=== PATIENT | male | born 1970 | race Caucasian/White ===

== ENCOUNTER 2019-03-01 04:08 | Inpatient (IN) | payer MEDICAID, OTHER ==
[~2019-03-01] VITALS: Ht 177.8 cm; Wt 104.5 kg
[2019-03-01] MEDS ORDERED: SODIUM CHLORIDE 0.9% 1,000 ML IV ONE (04:38)
[2019-03-01 05:10] LABS: BASOPHILS % 0.7 % (0.0-2.0); HEMATOCRIT. 30.5 % (42.0-52.0); HEMOGLOBIN. 9.6 g/dL (14.0-18.0); LYMPHOCYTES % 17.6 % (20.0-50.0); MEAN CORPUSCULAR HEMOGLOBIN 23.3 pg (28.0-32.0); MEAN CORPUSCULAR VOLUME 73.6 fL (80.0-94.0); MONOCYTES % 13.7 % (2.0-8.0); PLATELET 343 x1000/uL (130-400); RED BLOOD CELL COUNT 4.14 mill/uL (4.7-6.1); RED CELL DISTRIBUTION WIDTH 19.8 % (11.6-14.6)
[2019-03-01 05:14] LABS: INR 1.1; PROTHROMBIN TIME 11.2 sec (9.6-11.0)
[2019-03-01 05:16] LABS: CHLORIDE 105 mEq/L (98-107)
[2019-03-01 05:20] LABS: ETHANOL BLOOD < 10 mg/dL
[2019-03-01] MEDS ORDERED: CEFTRIAXONE 1 G PREMIX 50 ML IV ONE (06:00)
[2019-03-01 06:20] LABS: CLARITY URINE CLEAR (CLEAR); COLOR URINE YELLOW (YELLOW); KETONES URINE 1+ (NEGATIVE); LEUKOCYTE ESTERASE URINE NEGATIVE (NEGATIVE); NITRITE URINE NEGATIVE (NEGATIVE); OCCULT BLOOD URINE NEGATIVE (NEGATIVE); PROTEIN URINE NEGATIVE (NEGATIVE); SPECIFIC GRAVITY URINE 1.012 (1.005-1.030)
[2019-03-01 06:44] LABS: *AMPHETAMINES SCREEN URINE NEGATIVE (NEGATIVE); *BARBITURATES SCREEN URINE NEGATIVE (NEGATIVE); *BENZODIAZEPINES SCREEN URINE NEGATIVE (NEGATIVE); *COCAINE SCREEN URINE NEGATIVE (NEGATIVE); CANNABINOID URINE SCREEN PRESUMTIVE POSITIVE (NEGATIVE); METHADONE URINE SCREEN NEGATIVE (NEGATIVE); OPIATES URINE SCREEN NEGATIVE (NEGATIVE); PHENCYCLIDINE URINE SCREEN NEGATIVE (NEGATIVE)
[2019-03-01] MEDS ORDERED: ONDANSETRON HCL 4MG/2ML INJ IV PRN (08:30)
[2019-03-01] MEDS ORDERED: MAGNESIUM/ALUMINUM HYDROXIDE/SIMETHICONE 30ML UDC PO PRN (08:30)
[2019-03-01] MEDS ORDERED: DIPHENHYDRAMINE 50MG/ML VIAL IV PRN (08:30)
[2019-03-01] MEDS ORDERED: CLONIDINE 0.1MG TABLET PO PRN (08:30)
[2019-03-01] MEDS ORDERED: ENOXAPARIN 40MG/0.4ML SYR SUBCUT SCH (08:30)
[2019-03-01] MEDS ORDERED: ACETAMINOPHEN 325MG TABLET PO PRN (08:30)
[2019-03-01] MEDS ORDERED: ACETAMINOPHEN 650MG/20.3ML UDC GT PRN (08:30)
[2019-03-01] MEDS ORDERED: DOCUSATE SODIUM 100MG CAPSULE PO PRN (08:30)
[2019-03-01] MEDS ORDERED: ACETAMINOPHEN 650MG SUPP PR PRN (08:30)
[2019-03-01] MEDS ORDERED: NA PHOS,M-B/NA PHOS,DI-BA ENEMA 118ML PR PRN (08:30)
[2019-03-01] MEDS ORDERED: HYDROCODONE/ACETAMINOPHEN 5/325MG TABLET PO PRN (08:30)
[2019-03-01 09:30] VITALS: BP 166/76
[2019-03-01] MEDS: MORPHINE SULFATE 4 MG/ML CPJ (NOT FOR IM USE) IV PRN (09:35)
[2019-03-01 11:00] VITALS: BP 159/75
[2019-03-01] MEDS: SODIUM CHLORIDE 0.9% 1,000 ML IV SCH (11:43)
[2019-03-01] MEDS: ENOXAPARIN 30MG/0.3ML SYR SUBCUT SCH ×2 (11:44→22:34)
[2019-03-01 12:00] VITALS: BP 128/88
[2019-03-01] MEDS ORDERED: OMEP20CA5 PO (12:59)
[2019-03-01] MEDS ORDERED: METF-414 PO (13:00)
[2019-03-01] MEDS ORDERED: AMLO10TA80 MT (13:01)
[2019-03-01] MEDS ORDERED: CYAN10009 PO (13:06)
[2019-03-01] MEDS ORDERED: FOLI-43 MT (13:06)
[2019-03-01] MEDS ORDERED: CABO40TA PO (13:07)
[2019-03-01] MEDS: SODIUM CHLORIDE 0.9% INJ 3ML FLUSH IVF SCH ×2 (13:28→22:34)
[2019-03-01] MEDS: LEVOFLOXACIN 500MG PREMIX 100 ML IV SCH (13:28)
[2019-03-01 16:00] VITALS: BP 111/79
[2019-03-01 20:00] VITALS: BP 129/91
[2019-03-01] MEDS: GUAIFENESIN 200MG/10ML SUGAR FREE UDC PO PRN (22:37)
[2019-03-02] VITALS: BP 117/72
[2019-03-02] MEDS: SODIUM CHLORIDE 0.9% 1,000 ML IV SCH ×2 (02:11→11:54)
[2019-03-02 04:00] VITALS: BP 123/78
[2019-03-02] MEDS: SODIUM CHLORIDE 0.9% INJ 3ML FLUSH IVF SCH ×3 (06:19→22:12)
[2019-03-02] MEDS ORDERED: DEXTROSE 50% WATER 50ML SYRINGE IV PRN (07:00)
[2019-03-02] MEDS: BLOOD SUGAR DIAGNOSTIC STRIP TEST SCH ×4 (07:03→20:39)
[2019-03-02] MEDS: INSULIN LISPRO 100 UNITS/ML SUBCUT SCH ×4 (07:04→20:39)
[2019-03-02 07:11] LABS: BASOPHILS % 0.4 % (0.0-2.0); HEMATOCRIT. 30.7 % (42.0-52.0); HEMOGLOBIN. 9.7 g/dL (14.0-18.0); LYMPHOCYTES % 14.7 % (20.0-50.0); MEAN CORPUSCULAR HEMOGLOBIN 23.2 pg (28.0-32.0); MEAN CORPUSCULAR VOLUME 73.8 fL (80.0-94.0); MEAN PLATELET VOLUME 8.1 fl (7.4-10.4); MONOCYTES % 13.9 % (2.0-8.0); PLATELET 364 x1000/uL (130-400); RED BLOOD CELL COUNT 4.17 mill/uL (4.7-6.1); RED CELL DISTRIBUTION WIDTH 19.1 % (11.6-14.6)
[2019-03-02 07:20] LABS: CHLORIDE 105 mEq/L (98-107)
[2019-03-02 07:30] LABS: HDL CHOLESTEROL 20 mg/dL (40-59); LDL CHOLESTEROL 68 mg/dL (5-100)
[2019-03-02 08:00] VITALS: BP 129/86
[2019-03-02] MEDS: GUAIFENESIN 200MG/10ML SUGAR FREE UDC PO PRN ×3 (08:48→20:25)
[2019-03-02] MEDS: LEVOFLOXACIN 500MG PREMIX 100 ML IV SCH (11:54)
[2019-03-02] MEDS: ENOXAPARIN 30MG/0.3ML SYR SUBCUT SCH ×2 (11:54→22:12)
[2019-03-02 12:00] VITALS: BP 122/80
[2019-03-02 16:00] VITALS: BP 144/88
[2019-03-02 20:00] VITALS: BP 119/69
[2019-03-02] MEDS: IPRATROPIUM/ALBUTEROL 0.5-3(2.5)MG/3ML NEB INH PRN (20:50)
[2019-03-03] VITALS (7 sets, daily range): BP systolic 118–132; BP diastolic 74–92
[2019-03-03] MEDS: SODIUM CHLORIDE 0.9% 1,000 ML IV SCH ×2 (00:17→14:37)
[2019-03-03] MEDS: IPRATROPIUM/ALBUTEROL 0.5-3(2.5)MG/3ML NEB INH PRN ×2 (00:41→05:53)
[2019-03-03] MEDS: GUAIFENESIN 200MG/10ML SUGAR FREE UDC PO PRN (02:42)
[2019-03-03] MEDS: MORPHINE SULFATE 4 MG/ML CPJ (NOT FOR IM USE) IV PRN (03:34)
[2019-03-03] MEDS: BLOOD SUGAR DIAGNOSTIC STRIP TEST SCH ×4 (05:59→21:00)
[2019-03-03] MEDS: SODIUM CHLORIDE 0.9% INJ 3ML FLUSH IVF SCH ×3 (05:59→22:10)
[2019-03-03] MEDS: INSULIN LISPRO 100 UNITS/ML SUBCUT SCH ×4 (06:18→21:00)
[2019-03-03] MEDS ORDERED: CEPH-569 MT (07:28)
[2019-03-03] MEDS ORDERED: IBUPROFEN 400MG TABLET PO SCH (08:00)
[2019-03-03] MEDS: ENOXAPARIN 30MG/0.3ML SYR SUBCUT SCH ×2 (12:52→23:36)
[2019-03-03] MEDS ORDERED: LEVOFLOXACIN 500MG PREMIX 100 ML IV SCH (14:00)
[2019-03-04] VITALS: BP 125/85
== END 2019-03-04 01:20 | disposition home or self-care (01) | DRG 720 ==
LOC: ER 04:23 → EDBEDREQSVC 05:43 → EDBEDREQTM 05:43 → EDBEDREQ 05:43 → ENRESERV 07:49 → 5WST 10:23
PROVIDERS: ADMIT Family Medicine; ATTEND Family Medicine
DX: A41.9 Sepsis, unspecified organism (principal); E11.22 Type 2 diabetes mellitus with diabetic chronic kidney disease; N18.4 Chronic kidney disease, stage 4 (severe); E44.1 Mild protein-calorie malnutrition; N12 Tubulo-interstitial nephritis, not specified as acute or chronic; I12.9 Hypertensive chronic kidney disease with stage 1 through stage 4 chronic kidney disease, or unspecified chronic kidney disease; G89.29 Other chronic pain; E66.9 Obesity, unspecified; E86.0 Dehydration; Z88.8 Allergy status to other drugs, medicaments and biological substances; Z85.528 Personal history of other malignant neoplasm of kidney; Z90.49 Acquired absence of other specified parts of digestive tract; Z91.041 Radiographic dye allergy status; Z68.33 Body mass index [BMI] 33.0-33.9, adult
CPT/HCPCS: 36415; 71045; 73030; 73080; 74176; 80061; 80305; 80320; 82962; 83605; 83880; 84145; 84443; 84484; 93005; 93306; 93970; 94640; 96361; 96365; 96375; 99291; J0696; J1650; J1956; J2270; J2405; J7030; J7620; G0480

== ENCOUNTER 2019-03-10 10:33 | Emergency (ER) | payer MEDICAID ==
[~2019-03-10] VITALS: Ht 175.3 cm; Wt 80.0 kg
[~2019-03-10 10:33] MED LIST: AMLO10TA80 MT; CABO40TA PO; CEPH-569 MT; CYAN10009 PO; FOLI-43 MT; METF-414 PO; OMEP20CA10 PO
[2019-03-10 11:28] LABS: CHLORIDE 103 mEq/L (98-107)
[2019-03-10 11:32] LABS: BASOPHILS % 0.4 % (0.0-2.0); EOSINOPHILS % 0.4 % (0.0-5.0); HEMATOCRIT. 29.4 % (42.0-52.0); HEMOGLOBIN. 9.1 g/dL (14.0-18.0); LYMPHOCYTES % 10.4 % (20.0-50.0); MEAN CORPUSCULAR HEMOGLOBIN 22.7 pg (28.0-32.0); MEAN CORPUSCULAR VOLUME 73.4 fL (80.0-94.0); MEAN PLATELET VOLUME 8.1 fl (7.4-10.4); MONOCYTES % 11.5 % (2.0-8.0); NEUTROPHILS % 77.3 % (40.0-76.0); PLATELET 366 x1000/uL (130-400); RED CELL DISTRIBUTION WIDTH 18.6 % (11.6-14.6)
[2019-03-10 11:36] LABS: INR 1.1; PROTHROMBIN TIME 11.2 sec (9.6-11.0)
[2019-03-10] MEDS ORDERED: MINERAL OIL ENEMA 133ML PR ONE (12:00)
[2019-03-10] MEDS ORDERED: SODIUM CHLORIDE 0.9% 1,000 ML IV ONE (12:00)
[2019-03-10 13:22] LABS: CLARITY URINE CLEAR (CLEAR); COLOR URINE YELLOW (YELLOW); KETONES URINE NEGATIVE (NEGATIVE); LEUKOCYTE ESTERASE URINE NEGATIVE (NEGATIVE); NITRITE URINE NEGATIVE (NEGATIVE); OCCULT BLOOD URINE NEGATIVE (NEGATIVE); PH URINE 6.5 (4.5-8.0); PROTEIN URINE TRACE (NEGATIVE); SPECIFIC GRAVITY URINE 1.012 (1.005-1.030); UROBILINOGEN URINE 0.2 E.U./dL (0.2-1.0)
[2019-03-10] MEDS ORDERED: FENTANYL CITRATE/PF 50MCG/ML 2ML VIAL IV SCH (15:15)
[2019-03-10 15:28] VITALS: BP 134/93
== END 2019-03-10 16:02 | disposition home or self-care (01) ==
LOC: ER 10:33
DX: R53.1 Weakness (principal); D50.9 Iron deficiency anemia, unspecified; K59.00 Constipation, unspecified; C64.2 Malignant neoplasm of left kidney, except renal pelvis; E88.09 Other disorders of plasma-protein metabolism, not elsewhere classified; R03.0 Elevated blood-pressure reading, without diagnosis of hypertension; Z88.8 Allergy status to other drugs, medicaments and biological substances; Z91.041 Radiographic dye allergy status
CPT/HCPCS: 36415; 74018; 74176; 80053; 81003; 82962; 83690; 85025; 85610; 93005; 96374; 99284; J3010; Z7610

== ENCOUNTER 2019-03-23 01:13 | Emergency (ER) | payer MEDICAID ==
[~2019-03-23] VITALS: Ht 175.3 cm; Wt 91.0 kg
[2019-03-23] MEDS ORDERED: SODIUM CHLORIDE 0.9% 1,000 ML IV ONE (02:02)
[2019-03-23 02:39] LABS: BASOPHILS % 0.9 % (0.0-2.0); EOSINOPHILS % 0.9 % (0.0-5.0); HEMATOCRIT. 26.4 % (42.0-52.0); HEMOGLOBIN. 8.3 g/dL (14.0-18.0); LYMPHOCYTES % 12.6 % (20.0-50.0); MEAN CORPUSCULAR HEMOGLOBIN 22.8 pg (28.0-32.0); NEUTROPHILS % 76.6 % (40.0-76.0); PLATELET 549 x1000/uL (130-400); RED BLOOD CELL COUNT 3.62 mill/uL (4.7-6.1); RED CELL DISTRIBUTION WIDTH 18.9 % (11.6-14.6)
[2019-03-23 02:43] LABS: CHLORIDE 101 mEq/L (98-107)
[2019-03-23 02:47] LABS: ETHANOL BLOOD < 10 mg/dL
[2019-03-23 03:30] VITALS: BP 128/75
== END 2019-03-23 07:06 | disposition home or self-care (01) ==
LOC: ER 01:13
DX: J06.9 Acute upper respiratory infection, unspecified (principal); F12.10 Cannabis abuse, uncomplicated; D64.9 Anemia, unspecified; E11.9 Type 2 diabetes mellitus without complications; Z79.899 Other long term (current) drug therapy; Z91.041 Radiographic dye allergy status; Z88.8 Allergy status to other drugs, medicaments and biological substances
CPT/HCPCS: 36415; 71045; 80053; 80320; 82962; 84484; 85025; 93005; 99284; J7030; G0480

== ENCOUNTER 2019-04-19 15:46 | Inpatient (IN) | payer MEDICAID ==
[~2019-04-19] VITALS: Ht 177.8 cm; Wt 109.9 kg
[~2019-04-19 15:46] MED LIST changes: -OMEP20CA10 PO; +OMEP20CA5 PO
[2019-04-19] MEDS ORDERED: ASPIRIN 81MG TABLET PO ONE (16:45)
[2019-04-19 16:55] LABS: BASOPHILS % 1.2 % (0.0-2.0); EOSINOPHILS % 1.4 % (0.0-5.0); HEMATOCRIT. 25.9 % (42.0-52.0); LYMPHOCYTES % 21.4 % (20.0-50.0); MEAN CORPUSCULAR HEMOGLOBIN 22.6 pg (28.0-32.0); MEAN CORPUSCULAR VOLUME 72.8 fL (80.0-94.0); MEAN PLATELET VOLUME 7.8 fl (7.4-10.4); MONOCYTES % 13.2 % (2.0-8.0); NEUTROPHILS % 62.8 % (40.0-76.0); PLATELET 414 x1000/uL (130-400); RED BLOOD CELL COUNT 3.55 mill/uL (4.7-6.1); RED CELL DISTRIBUTION WIDTH 19.4 % (11.6-14.6)
[2019-04-19 16:59] LABS: CHLORIDE 103 mEq/L (98-107)
[2019-04-19 18:21] LABS: CLARITY URINE CLEAR (CLEAR); COLOR URINE YELLOW (YELLOW); KETONES URINE NEGATIVE (NEGATIVE); LEUKOCYTE ESTERASE URINE 1+ (NEGATIVE); NITRITE URINE NEGATIVE (NEGATIVE); OCCULT BLOOD URINE NEGATIVE (NEGATIVE); PH URINE 7.5 (4.5-8.0); PROTEIN URINE 1+ (NEGATIVE); SPECIFIC GRAVITY URINE 1.016 (1.005-1.030)
[2019-04-19] MEDS ORDERED: ZOLP10TA2 PO (21:29)
[2019-04-19] MEDS ORDERED: ALBU90AE INH (21:32)
[2019-04-19 21:34] VITALS: BP 134/82
[2019-04-19] MEDS ORDERED: ACETAMINOPHEN 650MG/20.3ML UDC GT PRN (22:00)
[2019-04-19] MEDS ORDERED: IPRATROPIUM/ALBUTEROL 0.5-3(2.5)MG/3ML NEB INH PRN (22:00)
[2019-04-19] MEDS ORDERED: DIPHENHYDRAMINE 50MG/ML VIAL IV PRN (22:00)
[2019-04-19] MEDS ORDERED: MAGNESIUM/ALUMINUM HYDROXIDE/SIMETHICONE 30ML UDC PO PRN (22:00)
[2019-04-19] MEDS ORDERED: ACETAMINOPHEN 650MG SUPP PR PRN (22:00)
[2019-04-19] MEDS ORDERED: NA PHOS,M-B/NA PHOS,DI-BA ENEMA 118ML PR PRN (22:00)
[2019-04-19] MEDS ORDERED: CLONIDINE 0.1MG TABLET PO PRN (22:00)
[2019-04-19] MEDS ORDERED: DOCUSATE SODIUM 100MG CAPSULE PO PRN (22:00)
[2019-04-19] MEDS ORDERED: ONDANSETRON HCL 4MG/2ML INJ IV PRN (22:00)
[2019-04-19 23:49] LABS: CLARITY URINE CLEAR (CLEAR); COLOR URINE YELLOW (YELLOW); KETONES URINE NEGATIVE (NEGATIVE); LEUKOCYTE ESTERASE URINE NEGATIVE (NEGATIVE); NITRITE URINE NEGATIVE (NEGATIVE); OCCULT BLOOD URINE NEGATIVE (NEGATIVE); PROTEIN URINE TRACE (NEGATIVE); SPECIFIC GRAVITY URINE 1.015 (1.005-1.030)
[2019-04-20] VITALS: BP 115/79
[2019-04-20 00:07] LABS: CREATINE KINASE 26 IU/L (39-308)
[2019-04-20 00:10] LABS: CREATINE KINASE MB FRACTION < 1.0 ng/mL (0.5-3.6)
[2019-04-20 00:58] LABS: *AMPHETAMINES SCREEN URINE NEGATIVE (NEGATIVE); *BARBITURATES SCREEN URINE NEGATIVE (NEGATIVE); *BENZODIAZEPINES SCREEN URINE NEGATIVE (NEGATIVE); *COCAINE SCREEN URINE NEGATIVE (NEGATIVE); CANNABINOID URINE SCREEN PRESUMTIVE POSITIVE (NEGATIVE)
[2019-04-20 00:59] LABS: METHADONE URINE SCREEN NEGATIVE (NEGATIVE); OPIATES URINE SCREEN NEGATIVE (NEGATIVE); PHENCYCLIDINE URINE SCREEN NEGATIVE (NEGATIVE)
[2019-04-20] MEDS: IPRATROPIUM/ALBUTEROL 0.5-3(2.5)MG/3ML NEB INH SCH ×4 (00:59→21:25)
[2019-04-20] MEDS: ACETAMINOPHEN 325MG TABLET PO PRN ×2 (02:54→22:14)
[2019-04-20 04:00] VITALS: BP 113/84
[2019-04-20] MEDS: GUAIFENESIN 200MG/10ML SUGAR FREE UDC PO PRN ×3 (05:24→16:34)
[2019-04-20 06:40] LABS: EOSINOPHILS % 2.8 % (0.0-5.0); HEMATOCRIT. 23.5 % (42.0-52.0); HEMOGLOBIN. 7.3 g/dL (14.0-18.0); LYMPHOCYTES % 21.2 % (20.0-50.0); MEAN CORPUSCULAR HEMOGLOBIN 22.6 pg (28.0-32.0); MEAN CORPUSCULAR VOLUME 72.5 fL (80.0-94.0); MEAN PLATELET VOLUME 8.1 fl (7.4-10.4); MONOCYTES % 14.1 % (2.0-8.0); NEUTROPHILS % 60.9 % (40.0-76.0); PLATELET 415 x1000/uL (130-400); RED BLOOD CELL COUNT 3.24 mill/uL (4.7-6.1)
[2019-04-20 06:51] LABS: CHLORIDE 104 mEq/L (98-107)
[2019-04-20] MEDS: SODIUM CHLORIDE 0.9% INJ 3ML FLUSH IVF SCH ×3 (07:03→21:26)
[2019-04-20 07:14] LABS: CREATINE KINASE 26 IU/L (39-308); LDL CHOLESTEROL 54 mg/dL (5-100)
[2019-04-20 07:16] LABS: HDL CHOLESTEROL 19 mg/dL (40-59)
[2019-04-20 07:19] LABS: CREATINE KINASE MB FRACTION < 1.0 ng/mL (0.5-3.6)
[2019-04-20] MEDS ORDERED: ENOXAPARIN 30MG/0.3ML SYR SUBCUT SCH (09:00)
[2019-04-20] MEDS ORDERED: FUROSEMIDE 40MG/4ML VIAL IVP SCH (09:15)
[2019-04-20 11:32] VITALS: BP 122/86
[2019-04-20 16:00] VITALS: BP 127/84
[2019-04-20 20:00] VITALS: BP 126/81
[2019-04-20] MEDS: FUROSEMIDE 40MG/4ML VIAL IVP SCH (21:46)
[2019-04-21] VITALS (11 sets, daily range): BP systolic 114–131; BP diastolic 79–96
[2019-04-21] MEDS: IPRATROPIUM/ALBUTEROL 0.5-3(2.5)MG/3ML NEB INH SCH (02:26)
[2019-04-21] MEDS: GUAIFENESIN 200MG/10ML SUGAR FREE UDC PO PRN (03:57)
[2019-04-21] MEDS: SODIUM CHLORIDE 0.9% INJ 3ML FLUSH IVF SCH ×3 (06:03→22:00)
[2019-04-21] MEDS: ACETAMINOPHEN 325MG TABLET PO PRN ×2 (08:10→22:02)
[2019-04-21] MEDS: FUROSEMIDE 40MG/4ML VIAL IVP SCH ×2 (08:10→18:06)
[2019-04-21 13:17] LABS: HEMATOCRIT 27.7 % (42.0-52.0); HEMOGLOBIN 8.5 g/dL (14.0-18.0)
[2019-04-21] MEDS ORDERED: AMLO5TAB88 PO (19:20)
[2019-04-21] MEDS: IPRATROPIUM BROMIDE (0.02%) 0.5MG/2.5ML NEB HHN SCH (21:23)
[2019-04-22] VITALS: BP 125/86
[2019-04-22] MEDS: IPRATROPIUM BROMIDE (0.02%) 0.5MG/2.5ML NEB HHN SCH ×4 (00:02→12:50)
[2019-04-22] MEDS: GUAIFENESIN 200MG/10ML SUGAR FREE UDC PO PRN (02:32)
[2019-04-22 04:00] VITALS: BP 121/80
[2019-04-22] MEDS: SODIUM CHLORIDE 0.9% INJ 3ML FLUSH IVF SCH (05:10)
[2019-04-22] MEDS: FUROSEMIDE 40MG/4ML VIAL IVP SCH (09:51)
[2019-04-22 10:03] LABS: CHLORIDE 100 mEq/L (98-107)
[2019-04-22 10:09] LABS: EOSINOPHILS % 2.4 % (0.0-5.0); HEMATOCRIT. 26.9 % (42.0-52.0); HEMOGLOBIN. 8.5 g/dL (14.0-18.0); LYMPHOCYTES % 14.5 % (20.0-50.0); MEAN CORPUSCULAR HEMOGLOBIN 23.2 pg (28.0-32.0); MEAN CORPUSCULAR VOLUME 73.9 fL (80.0-94.0); MEAN PLATELET VOLUME 8.3 fl (7.4-10.4); MONOCYTES % 12.6 % (2.0-8.0); NEUTROPHILS % 69.5 % (40.0-76.0); PLATELET 398 x1000/uL (130-400); RED BLOOD CELL COUNT 3.64 mill/uL (4.7-6.1); RED CELL DISTRIBUTION WIDTH 20.3 % (11.6-14.6)
[2019-04-22] MEDS ORDERED: FURO-151 MT (13:01)
[2019-04-22 14:47] VITALS: BP 124/75
== END 2019-04-22 15:41 | disposition home or self-care (01) | DRG 194 ==
LOC: ER 15:46 → EDBEDREQ 16:41 → 6WST 19:18 → EDBEDREQSVC 19:26 → EDBEDREQTM 19:26 → EDBEDREQ 19:26 → ENRESERV 20:04
PROVIDERS: ADMIT Family Medicine; ATTEND Family Medicine
DX: I11.0 Hypertensive heart disease with heart failure (principal); J96.00 Acute respiratory failure, unspecified whether with hypoxia or hypercapnia; E43 Unspecified severe protein-calorie malnutrition; C78.00 Secondary malignant neoplasm of unspecified lung; C79.31 Secondary malignant neoplasm of brain; C64.9 Malignant neoplasm of unspecified kidney, except renal pelvis; D64.9 Anemia, unspecified; E87.70 Fluid overload, unspecified; I50.33 Acute on chronic diastolic (congestive) heart failure; I31.3 Pericardial effusion (noninflammatory); E11.9 Type 2 diabetes mellitus without complications; F12.90 Cannabis use, unspecified, uncomplicated; R00.0 Tachycardia, unspecified; Z91.041 Radiographic dye allergy status; Z88.8 Allergy status to other drugs, medicaments and biological substances; Z79.899 Other long term (current) drug therapy; Z79.84 Long term (current) use of oral hypoglycemic drugs
CPT/HCPCS: 36415; 71045; 71250; 80061; 80305; 82550; 82553; 83880; 84484; 85014; 85018; 86850; 86900; 86920; 93005; 93306; 93970; 94640; 96374; 97162; 99285; J1200; J1650; J1940; J7050; J7620; P9021

== ENCOUNTER 2019-04-25 00:09 | Inpatient (IN) | payer MEDICAID ==
[~2019-04-25] VITALS: Ht 177.8 cm; Wt 107.5 kg
[~2019-04-25 00:09] MED LIST changes: +ALBU90AE INH; -AMLO10TA80 MT; -CEPH-569 MT; +FURO-151 MT; -METF-414 PO; +ZOLP10TA2 PO
[2019-04-25] MEDS ORDERED: ONDANSETRON HCL 4MG/2ML INJ IV STA (01:00)
[2019-04-25] MEDS ORDERED: MORPHINE SULFATE 4 MG/ML CPJ (NOT FOR IM USE) IV STA (01:00)
[2019-04-25 01:40] LABS: BASOPHILS % 0.8 % (0.0-2.0); EOSINOPHILS % 2.2 % (0.0-5.0); HEMATOCRIT. 25.3 % (42.0-52.0); HEMOGLOBIN. 7.9 g/dL (14.0-18.0); LYMPHOCYTES % 19.6 % (20.0-50.0); MEAN CORPUSCULAR HEMOGLOBIN 23.2 pg (28.0-32.0); MEAN CORPUSCULAR VOLUME 74.1 fL (80.0-94.0); MEAN PLATELET VOLUME 8.1 fl (7.4-10.4); MONOCYTES % 14.7 % (2.0-8.0); NEUTROPHILS % 62.7 % (40.0-76.0); PLATELET 441 x1000/uL (130-400); RED BLOOD CELL COUNT 3.42 mill/uL (4.7-6.1)
[2019-04-25 01:43] LABS: CHLORIDE 100 mEq/L (98-107)
[2019-04-25 08:00] VITALS: BP 115/71
[2019-04-25] MEDS ORDERED: ACETAMINOPHEN 325MG TABLET PO PRN (08:15)
[2019-04-25] MEDS ORDERED: LORAZEPAM 0.5MG TABLET PO PRN (08:15)
[2019-04-25] MEDS ORDERED: MAGNESIUM/ALUMINUM HYDROXIDE/SIMETHICONE 30ML UDC PO PRN (08:15)
[2019-04-25] MEDS ORDERED: CLONIDINE 0.1MG TABLET PO PRN (08:15)
[2019-04-25] MEDS ORDERED: ONDANSETRON HCL 4MG/2ML INJ IV PRN (08:15)
[2019-04-25] MEDS ORDERED: MORPHINE SULFATE 2 MG/ML CPJ (NOT FOR IM USE) IV PRN (08:15)
[2019-04-25] MEDS ORDERED: DOCUSATE SODIUM 100MG CAPSULE PO PRN (08:15)
[2019-04-25] MEDS ORDERED: TRAMADOL 50MG TABLET PO PRN (08:15)
[2019-04-25] MEDS ORDERED: ZOLPIDEM TARTRATE 5MG TABLET PO PRN (08:15)
[2019-04-25] MEDS ORDERED: IPRATROPIUM/ALBUTEROL 0.5-3(2.5)MG/3ML NEB INH PRN (08:15)
[2019-04-25 09:00] VITALS: BP 115/71
[2019-04-25] MEDS: METOPROLOL TARTRATE 25MG TABLET PO SCH ×2 (09:00→21:12)
[2019-04-25 09:55] LABS: HEMATOCRIT. 26.2 % (42.0-52.0); HEMOGLOBIN. 7.9 g/dL (14.0-18.0); MEAN CORPUSCULAR HEMOGLOBIN 22.7 pg (28.0-32.0); MEAN CORPUSCULAR VOLUME 74.9 fL (80.0-94.0); MEAN PLATELET VOLUME 8.1 fl (7.4-10.4); PLATELET 386 x1000/uL (130-400); RED CELL DISTRIBUTION WIDTH 21.8 % (11.6-14.6)
[2019-04-25 10:02] LABS: CHLORIDE 101 mEq/L (98-107)
[2019-04-25 10:08] LABS: TOTAL IRON BINDING CAPACITY 120 ug/dL (250-450)
[2019-04-25 10:23] LABS: PLATELET ESTIMATE NORMAL
[2019-04-25 10:26] LABS: FOLIC ACID (FOLATE) SERUM 15.5 ng/mL (>5.38)
[2019-04-25 12:00] VITALS: BP 111/77
[2019-04-25] MEDS: FAMOTIDINE 20MG TABLET PO SCH ×2 (12:13→21:10)
[2019-04-25] MEDS: CEFTRIAXONE 1 G PREMIX 50 ML IV SCH (12:14)
[2019-04-25 15:15] LABS: BASOPHILS % 0.8 % (0.0-2.0); EOSINOPHILS % 2.3 % (0.0-5.0); HEMOGLOBIN. 7.6 g/dL (14.0-18.0); LYMPHOCYTES % 14.8 % (20.0-50.0); MEAN CORPUSCULAR HEMOGLOBIN 22.9 pg (28.0-32.0); MEAN CORPUSCULAR VOLUME 75.3 fL (80.0-94.0); MEAN PLATELET VOLUME 8.5 fl (7.4-10.4); MONOCYTES % 14.4 % (2.0-8.0); NEUTROPHILS % 67.7 % (40.0-76.0); PLATELET 382 x1000/uL (130-400); RED BLOOD CELL COUNT 3.32 mill/uL (4.7-6.1); RED CELL DISTRIBUTION WIDTH 21.6 % (11.6-14.6)
[2019-04-25 16:00] VITALS: BP 104/60
[2019-04-25] MEDS ORDERED: DEXTROSE 50% WATER 50ML SYRINGE IV PRN (16:00)
[2019-04-25] MEDS: BLOOD SUGAR DIAGNOSTIC STRIP TEST SCH ×2 (16:55→21:00)
[2019-04-25] MEDS: INSULIN LISPRO 100 UNITS/ML SUBCUT SCH ×2 (16:58→21:00)
[2019-04-25] MEDS ORDERED: METOLAZONE 10MG TABLET PO NR (17:00)
[2019-04-25] MEDS ORDERED: LEVOFLOXACIN 750MG PREMIX 150 ML IV SCH (18:00)
[2019-04-25] MEDS ORDERED: AMLO5TAB88 MT (19:37)
[2019-04-25] MEDS ORDERED: EVER10TA MT (19:37)
[2019-04-25 20:00] VITALS: BP 114/82
[2019-04-25] MEDS: GUAIFENESIN 200MG/10ML SUGAR FREE UDC PO PRN (21:10)
[2019-04-26] VITALS: BP 107/75
[2019-04-26] MEDS: GUAIFENESIN 200MG/10ML SUGAR FREE UDC PO PRN (02:24)
[2019-04-26 04:00] VITALS: BP 116/78
[2019-04-26] MEDS: BLOOD SUGAR DIAGNOSTIC STRIP TEST SCH ×2 (06:53→11:45)
[2019-04-26] MEDS: INSULIN LISPRO 100 UNITS/ML SUBCUT SCH ×2 (06:53→12:15)
[2019-04-26 07:31] LABS: CHLORIDE 99 mEq/L (98-107)
[2019-04-26 08:00] VITALS: BP 112/75
[2019-04-26] MEDS: METOPROLOL TARTRATE 25MG TABLET PO SCH (09:00)
[2019-04-26] MEDS: CEFTRIAXONE 1 G PREMIX 50 ML IV SCH (10:09)
[2019-04-26] MEDS: FAMOTIDINE 20MG TABLET PO SCH (10:10)
[2019-04-26 12:56] LABS: BASOPHILS % 0.4 % (0.0-2.0); EOSINOPHILS % 2.1 % (0.0-5.0); HEMATOCRIT. 24.4 % (42.0-52.0); HEMOGLOBIN. 7.5 g/dL (14.0-18.0); LYMPHOCYTES % 14.7 % (20.0-50.0); MEAN CORPUSCULAR HEMOGLOBIN 23.2 pg (28.0-32.0); MEAN CORPUSCULAR VOLUME 75.7 fL (80.0-94.0); MEAN PLATELET VOLUME 8.6 fl (7.4-10.4); MONOCYTES % 14.3 % (2.0-8.0); NEUTROPHILS % 68.5 % (40.0-76.0); PLATELET 395 x1000/uL (130-400); RED BLOOD CELL COUNT 3.23 mill/uL (4.7-6.1); RED CELL DISTRIBUTION WIDTH 21.6 % (11.6-14.6)
[2019-04-26 15:55] VITALS: BP 102/72
[2019-04-27] MEDS ORDERED: LEVOFLOXACIN 250MG TABLET PO SCH (21:00)
== END 2019-04-26 16:25 | disposition home or self-care (01) | DRG 136 ==
LOC: ER 00:09 → EDBEDREQ 03:55 → EDBEDREQTM 03:55 → 5WST 04:41 → ENRESERV 07:44
PROVIDERS: ADMIT Internal Medicine; ATTEND Internal Medicine
DX: C78.00 Secondary malignant neoplasm of unspecified lung (principal); J96.00 Acute respiratory failure, unspecified whether with hypoxia or hypercapnia; E43 Unspecified severe protein-calorie malnutrition; J18.9 Pneumonia, unspecified organism; R18.8 Other ascites; E83.51 Hypocalcemia; C64.9 Malignant neoplasm of unspecified kidney, except renal pelvis; E83.52 Hypercalcemia; D63.8 Anemia in other chronic diseases classified elsewhere; E11.9 Type 2 diabetes mellitus without complications; I10 Essential (primary) hypertension; N61.0 Mastitis without abscess; Z68.34 Body mass index [BMI] 34.0-34.9, adult; Z88.8 Allergy status to other drugs, medicaments and biological substances; Z91.09 Other allergy status, other than to drugs and biological substances
CPT/HCPCS: 36415; 71045; 80048; 82607; 82746; 82962; 83036; 83540; 83550; 83605; 83880; 84484; 86850; 86900; 93005; 93970; 94640; 96374; 96375; 99285; J0696; J1956; J2270; J2405; J7050; J7620

== ENCOUNTER 2019-05-16 13:45 | Inpatient (IN) | payer MEDICAID ==
[~2019-05-16] VITALS: Ht 177.8 cm; Wt 115.7 kg
[2019-05-16] VITALS (18 sets, daily range): BP systolic 100–117; BP diastolic 57–77
[~2019-05-16 13:45] MED LIST changes: +AMLO5TAB88 MT; +EVER10TA MT
[2019-05-16] MEDS ORDERED: DILTIAZEM HCL 5MG/ML 5ML VIAL IV ONE (14:30)
[2019-05-16] MEDS ORDERED: LIDOCAINE HCL 1% 20ML VIAL (Pyxis) INJ ONE (14:42)
[2019-05-16] MEDS ORDERED: SODIUM BICARBONATE 4% (2.4MEQ) 5ML VIAL IV ONE (14:42)
[2019-05-16] MEDS ORDERED: DILTIAZEM HCL 125 MG in DEXT 5% WATER 100 ML IV ONE (14:45)
[2019-05-16] MEDS ORDERED: DIGOXIN 500MCG/2ML AMP IV ONE ×2 (14:45→16:00)
[2019-05-16 14:46] LABS: BASOPHILS % 1.6 % (0.0-2.0); EOSINOPHILS % 0.7 % (0.0-5.0); HEMATOCRIT. 25.5 % (42.0-52.0); HEMOGLOBIN. 7.8 g/dL (14.0-18.0); LYMPHOCYTES % 17.9 % (20.0-50.0); MEAN CORPUSCULAR HEMOGLOBIN 22.7 pg (28.0-32.0); MEAN CORPUSCULAR VOLUME 74.6 fL (80.0-94.0); MEAN PLATELET VOLUME 9.9 fl (7.4-10.4); MONOCYTES % 11.9 % (2.0-8.0); NEUTROPHILS % 67.9 % (40.0-76.0); PLATELET 182 x1000/uL (130-400); RED BLOOD CELL COUNT 3.42 mill/uL (4.7-6.1); RED CELL DISTRIBUTION WIDTH 21.1 % (11.6-14.6)
[2019-05-16 14:53] LABS: CHLORIDE 98 mEq/L (98-107)
[2019-05-16 14:55] LABS: PARTIAL THROMBOPLASTIN TIME 31.3 sec (23.4-31.0); PROTHROMBIN TIME 10.3 sec (9.6-11.0)
[2019-05-16 14:57] LABS: ETHANOL BLOOD < 10 mg/dL
[2019-05-16] MEDS ORDERED: DILTIAZEM HCL 125 MG in DEXT 5% WATER 100 ML IV SCH (15:00)
[2019-05-16 15:02] LABS: T4 FREE 1.19 ng/dL (0.76-1.46)
[2019-05-16] MEDS ORDERED: LEVOFLOXACIN 500MG PREMIX 100 ML IV ONE (15:15)
[2019-05-16] MEDS ORDERED: CEFTRIAXONE 1 G PREMIX 50 ML IV SCH (15:30)
[2019-05-16] MEDS ORDERED: AZITHROMYCIN 500 MG in DEXT 5% WATER 250 ML IV SCH (15:30)
[2019-05-16] MEDS ORDERED: IPRATROPIUM/ALBUTEROL 0.5-3(2.5)MG/3ML NEB HHN PRN (15:30)
[2019-05-16 16:28] LABS: BG BASE EXCESS 0.7 mmol/L (-2.0-2.0); BG CARBOXYHEMOGLOBIN 0.4 % (0.5-1.5); BG DEOXYHEMOGLOBIN 0.4 % (0.0-5.0); BG FRACTION INSPIRED OXYGEN 100; BG HCO3 ACT 24.8 mmol/L (22.0-26.0); BG METHEMOGLOBIN 0.3 % (0.0-1.5); BG OXYGEN SATURATION 99.6 % (92.0-98.5); BG OXYHEMOGLOBIN 98.9 % (94.0-97.0); BG PCO2 37.3 mmHg (35.0-45.0); BG PO2 266.2 mmHg (75.0-100.0); BG SAMPLE SITE RIGHT RADIAL; BG TOTAL HEMOGLOBIN 8.1 g/dL (12.0-18.0); BG VENT MODE MASK - NRB
[2019-05-16] MEDS ORDERED: ZOLPIDEM TARTRATE 5MG TABLET PO PRN (16:30)
[2019-05-16] MEDS ORDERED: NITROGLYCERIN 0.4MG TABLET SL SL PRN (16:30)
[2019-05-16] MEDS ORDERED: GUAIFENESIN 200MG/10ML SUGAR FREE UDC PO PRN (16:30)
[2019-05-16] MEDS ORDERED: IPRATROPIUM/ALBUTEROL 0.5-3(2.5)MG/3ML NEB INH PRN (16:30)
[2019-05-16] MEDS ORDERED: CLONIDINE 0.1MG TABLET PO PRN (16:30)
[2019-05-16] MEDS ORDERED: MAGNESIUM/ALUMINUM HYDROXIDE/SIMETHICONE 30ML UDC PO PRN (16:30)
[2019-05-16 17:44] LABS: TOTAL IRON BINDING CAPACITY 168 ug/dL (250-450)
[2019-05-16 18:15] LABS: VITAMIN B12 SERUM 1926 pg/mL (211-911)
[2019-05-16 18:17] LABS: FOLIC ACID (FOLATE) SERUM > 20.00 ng/mL (>5.38)
[2019-05-16] MEDS ORDERED: FUROSEMIDE 40MG/4ML VIAL IVP NR (20:00)
[2019-05-16] MEDS: FAMOTIDINE 20MG TABLET PO SCH (20:26)
[2019-05-16] MEDS: GUAIFENESIN/DM 600MG/30MG ER TAB 12HR PO SCH (20:26)
[2019-05-16] MEDS: ASCORBIC ACID 500 MG TABLET PO SCH (20:26)
[2019-05-16] MEDS ORDERED: VANCOMYCIN 2,000 MG in DEXT 5% WATER 500 ML IV NR (21:00)
[2019-05-16] MEDS: PIPERACILLIN/TAZ 3.375G PREMIX 50 ML IV SCH (21:11)
[2019-05-16] MEDS: MORPHINE SULFATE 2 MG/ML CPJ (NOT FOR IM USE) IV PRN (22:21)
[2019-05-17] VITALS (93 sets, daily range): BP systolic 91–124; BP diastolic 21–81
[2019-05-17] MEDS: IPRATROPIUM BROMIDE (0.02%) 0.5MG/2.5ML NEB HHN SCH ×7 (00:29→20:08)
[2019-05-17] MEDS: LORAZEPAM 0.5MG TABLET PO PRN ×2 (00:45→22:40)
[2019-05-17] MEDS ORDERED: DILTIAZEM HCL 125 MG in DEXT 5% WATER 100 ML IV PRN (01:15)
[2019-05-17] MEDS: PIPERACILLIN/TAZ 3.375G PREMIX 50 ML IV SCH ×4 (03:20→23:27)
[2019-05-17] MEDS: MORPHINE SULFATE 2 MG/ML CPJ (NOT FOR IM USE) IV PRN ×3 (05:21→21:14)
[2019-05-17 05:37] LABS: BASOPHILS % 1.5 % (0.0-2.0); EOSINOPHILS % 1.5 % (0.0-5.0); HEMATOCRIT. 22.5 % (42.0-52.0); LYMPHOCYTES % 16.9 % (20.0-50.0); MEAN CORPUSCULAR VOLUME 75.1 fL (80.0-94.0); MEAN PLATELET VOLUME 10.2 fl (7.4-10.4); MONOCYTES % 9.8 % (2.0-8.0); NEUTROPHILS % 70.3 % (40.0-76.0); PLATELET 135 x1000/uL (130-400); RED BLOOD CELL COUNT 2.99 mill/uL (4.7-6.1); RED CELL DISTRIBUTION WIDTH 21.3 % (11.6-14.6)
[2019-05-17 05:48] LABS: CHLORIDE 98 mEq/L (98-107)
[2019-05-17 06:02] LABS: CREATINE KINASE 21 IU/L (39-308)
[2019-05-17 06:06] LABS: CREATINE KINASE MB FRACTION < 1.0 ng/mL (0.5-3.6)
[2019-05-17 06:12] LABS: HEMOGLOBIN. 6.9 g/dL (14.0-18.0)
[2019-05-17] MEDS: ASCORBIC ACID 500 MG TABLET PO SCH ×2 (09:50→21:10)
[2019-05-17] MEDS: FAMOTIDINE 20MG TABLET PO SCH ×2 (09:50→21:10)
[2019-05-17] MEDS: VANCOMYCIN 1250MG in DEXTROSE 5% WATER 250ML IV SCH ×2 (09:51→21:10)
[2019-05-17] MEDS: ZINC SULFATE 220 MG ( 50 ) CAPSULE PO SCH (09:51)
[2019-05-17] MEDS: TRAMADOL 50MG TABLET PO PRN (09:53)
[2019-05-17] MEDS: GUAIFENESIN/DM 600MG/30MG ER TAB 12HR PO SCH ×2 (11:00→21:10)
[2019-05-17] MEDS: AMIODARONE HCL 200 MG TABLET PO SCH (18:08)
[2019-05-17 20:15] LABS: BASOPHILS % 2.3 % (0.0-2.0); EOSINOPHILS % 1.2 % (0.0-5.0); HEMATOCRIT. 24.5 % (42.0-52.0); HEMOGLOBIN. 7.5 g/dL (14.0-18.0); LYMPHOCYTES % 15.5 % (20.0-50.0); MEAN CORPUSCULAR HEMOGLOBIN 23.4 pg (28.0-32.0); MEAN CORPUSCULAR VOLUME 76.9 fL (80.0-94.0); MEAN PLATELET VOLUME 9.9 fl (7.4-10.4); MONOCYTES % 12.2 % (2.0-8.0); NEUTROPHILS % 68.8 % (40.0-76.0); PLATELET 134 x1000/uL (130-400); RED BLOOD CELL COUNT 3.19 mill/uL (4.7-6.1); RED CELL DISTRIBUTION WIDTH 21.8 % (11.6-14.6)
[2019-05-17 20:30] LABS: PROTHROMBIN TIME 10.3 sec (9.6-11.0)
[2019-05-17] MEDS: DILTIAZEM HCL 30MG TABLET PO SCH (21:11)
[2019-05-18] VITALS (77 sets, daily range): BP systolic 85–126; BP diastolic 31–76
[2019-05-18] MEDS: IPRATROPIUM BROMIDE (0.02%) 0.5MG/2.5ML NEB HHN SCH ×6 (00:36→20:53)
[2019-05-18] MEDS: PIPERACILLIN/TAZ 3.375G PREMIX 50 ML IV SCH ×4 (05:30→23:06)
[2019-05-18] MEDS: DILTIAZEM HCL 30MG TABLET PO SCH ×3 (05:30→21:16)
[2019-05-18 07:53] LABS: BASOPHILS % 1.8 % (0.0-2.0); EOSINOPHILS % 1.2 % (0.0-5.0); HEMATOCRIT. 23.7 % (42.0-52.0); HEMOGLOBIN. 7.4 g/dL (14.0-18.0); LYMPHOCYTES % 16.2 % (20.0-50.0); MEAN CORPUSCULAR HEMOGLOBIN 23.9 pg (28.0-32.0); MEAN CORPUSCULAR VOLUME 76.6 fL (80.0-94.0); MEAN PLATELET VOLUME 10.3 fl (7.4-10.4); NEUTROPHILS % 69.8 % (40.0-76.0); PLATELET 129 x1000/uL (130-400); RED CELL DISTRIBUTION WIDTH 21.3 % (11.6-14.6)
[2019-05-18] MEDS: TRAMADOL 50MG TABLET PO PRN (08:01)
[2019-05-18] MEDS: ZINC SULFATE 220 MG ( 50 ) CAPSULE PO SCH (08:49)
[2019-05-18] MEDS: ASCORBIC ACID 500 MG TABLET PO SCH ×2 (08:49→21:16)
[2019-05-18] MEDS: AMIODARONE HCL 200 MG TABLET PO SCH ×2 (08:49→18:37)
[2019-05-18] MEDS: DOCUSATE SODIUM 100MG CAPSULE PO PRN ×2 (08:49→18:37)
[2019-05-18] MEDS: FAMOTIDINE 20MG TABLET PO SCH ×2 (09:00→21:16)
[2019-05-18] MEDS ORDERED: RACEPINEPHRINE 2.25% 0.5ML NEB VIAL HHN PRN (09:45)
[2019-05-18 10:23] LABS: BG BASE EXCESS 0.8 mmol/L (-2.0-2.0); BG BILEVEL POS AIRWAY PRESSURE ST=15/5; BG CARBOXYHEMOGLOBIN 0.6 % (0.5-1.5); BG DEOXYHEMOGLOBIN 1.4 % (0.0-5.0); BG FRACTION INSPIRED OXYGEN 50; BG HCO3 ACT 25.9 mmol/L (22.0-26.0); BG METHEMOGLOBIN 0.4 % (0.0-1.5); BG OXYGEN SATURATION 98.6 % (92.0-98.5); BG OXYHEMOGLOBIN 97.6 % (94.0-97.0); BG PCO2 43.5 mmHg (35.0-45.0); BG PH 7.392 (7.350-7.450); BG PO2 138.9 mmHg (75.0-100.0); BG PRESSURE SUPPORT 10; BG SAMPLE SITE LEFT BRACHIAL; BG TOTAL HEMOGLOBIN 8.2 g/dL (12.0-18.0); BG VENT MODE MASK - BIPAP; BG VENT RATE 16 set
[2019-05-18] MEDS: MORPHINE SULFATE 2 MG/ML CPJ (NOT FOR IM USE) IV PRN ×2 (10:36→21:26)
[2019-05-18] MEDS: ONDANSETRON HCL 4MG/2ML INJ IV PRN (10:36)
[2019-05-18] MEDS: GUAIFENESIN/DM 600MG/30MG ER TAB 12HR PO SCH ×2 (10:42→21:16)
[2019-05-18] MEDS: VANCOMYCIN 1250MG in DEXTROSE 5% WATER 250ML IV SCH (21:15)
[2019-05-19] VITALS (46 sets, daily range): BP systolic 86–134; BP diastolic 22–75
[2019-05-19] MEDS: IPRATROPIUM BROMIDE (0.02%) 0.5MG/2.5ML NEB HHN SCH ×3 (00:30→08:42)
[2019-05-19] MEDS: PIPERACILLIN/TAZ 3.375G PREMIX 50 ML IV SCH ×3 (05:20→17:22)
[2019-05-19] MEDS: DILTIAZEM HCL 30MG TABLET PO SCH ×2 (05:37→13:54)
[2019-05-19] MEDS: MORPHINE SULFATE 2 MG/ML CPJ (NOT FOR IM USE) IV PRN ×3 (05:52→22:15)
[2019-05-19 06:34] LABS: BASOPHILS % 2.2 % (0.0-2.0); EOSINOPHILS % 1.5 % (0.0-5.0); HEMATOCRIT. 24.7 % (42.0-52.0); HEMOGLOBIN. 7.6 g/dL (14.0-18.0); MEAN CORPUSCULAR HEMOGLOBIN 23.6 pg (28.0-32.0); MEAN PLATELET VOLUME 9.8 fl (7.4-10.4); MONOCYTES % 12.3 % (2.0-8.0); PLATELET 136 x1000/uL (130-400); RED BLOOD CELL COUNT 3.21 mill/uL (4.7-6.1); RED CELL DISTRIBUTION WIDTH 21.7 % (11.6-14.6)
[2019-05-19] MEDS: ZINC SULFATE 220 MG ( 50 ) CAPSULE PO SCH (09:00)
[2019-05-19] MEDS: ASCORBIC ACID 500 MG TABLET PO SCH ×2 (09:00→21:27)
[2019-05-19] MEDS: FAMOTIDINE 20MG TABLET PO SCH ×2 (09:00→21:27)
[2019-05-19] MEDS: AMIODARONE HCL 200 MG TABLET PO SCH ×2 (09:00→17:22)
[2019-05-19] MEDS: GUAIFENESIN/DM 600MG/30MG ER TAB 12HR PO SCH ×2 (09:09→21:27)
[2019-05-19] MEDS: TRAMADOL 50MG TABLET PO PRN (10:35)
[2019-05-19] MEDS: IPRATROPIUM/ALBUTEROL 0.5-3(2.5)MG/3ML NEB HHN SCH ×3 (11:13→20:12)
[2019-05-19] MEDS: VANCOMYCIN 1250MG in DEXTROSE 5% WATER 250ML IV SCH (15:20)
[2019-05-19] MEDS: ACETYLCYSTEINE 100MG/ML 10% VIAL 4ML INH SCH (16:26)
[2019-05-19] MEDS: ACETAMINOPHEN 325MG TABLET PO PRN (21:32)
[2019-05-20] VITALS (29 sets, daily range): BP systolic 87–131; BP diastolic 53–84
[2019-05-20] MEDS: ACETYLCYSTEINE 100MG/ML 10% VIAL 4ML INH SCH ×3 (00:17→16:00)
[2019-05-20] MEDS: IPRATROPIUM/ALBUTEROL 0.5-3(2.5)MG/3ML NEB HHN SCH ×6 (00:18→20:20)
[2019-05-20] MEDS: PIPERACILLIN/TAZ 3.375G PREMIX 50 ML IV SCH ×4 (00:31→18:32)
[2019-05-20] MEDS: TRAMADOL 50MG TABLET PO PRN (00:57)
[2019-05-20] MEDS: MORPHINE SULFATE 2 MG/ML CPJ (NOT FOR IM USE) IV PRN ×3 (05:02→18:25)
[2019-05-20 05:40] LABS: BASOPHILS % 2.2 % (0.0-2.0); EOSINOPHILS % 1.2 % (0.0-5.0); HEMATOCRIT. 24.2 % (42.0-52.0); HEMOGLOBIN. 7.5 g/dL (14.0-18.0); LYMPHOCYTES % 22.3 % (20.0-50.0); MEAN CORPUSCULAR HEMOGLOBIN 23.7 pg (28.0-32.0); MEAN CORPUSCULAR VOLUME 76.4 fL (80.0-94.0); MEAN PLATELET VOLUME 10.2 fl (7.4-10.4); MONOCYTES % 14.1 % (2.0-8.0); NEUTROPHILS % 60.2 % (40.0-76.0); PLATELET 145 x1000/uL (130-400); RED BLOOD CELL COUNT 3.17 mill/uL (4.7-6.1); RED CELL DISTRIBUTION WIDTH 21.7 % (11.6-14.6)
[2019-05-20 05:44] LABS: CHLORIDE 97 mEq/L (98-107)
[2019-05-20] MEDS: VANCOMYCIN 1250MG in DEXTROSE 5% WATER 250ML IV SCH (09:59)
[2019-05-20] MEDS: GUAIFENESIN/DM 600MG/30MG ER TAB 12HR PO SCH ×2 (09:59→20:49)
[2019-05-20] MEDS: ZINC SULFATE 220 MG ( 50 ) CAPSULE PO SCH (09:59)
[2019-05-20] MEDS: FAMOTIDINE 20MG TABLET PO SCH ×2 (09:59→20:49)
[2019-05-20] MEDS: AMIODARONE HCL 200 MG TABLET PO SCH ×3 (09:59→18:32)
[2019-05-20] MEDS: ASCORBIC ACID 500 MG TABLET PO SCH ×2 (09:59→20:49)
[2019-05-20] MEDS: ONDANSETRON HCL 4MG/2ML INJ IV PRN (17:32)
[2019-05-20] MEDS: LORAZEPAM 0.5MG TABLET PO PRN (22:15)
[2019-05-21] VITALS (38 sets, daily range): BP systolic 93–158; BP diastolic 52–98
[2019-05-21] MEDS: PIPERACILLIN/TAZ 3.375G PREMIX 50 ML IV SCH ×4 (00:03→17:56)
[2019-05-21] MEDS: ACETYLCYSTEINE 100MG/ML 10% VIAL 4ML INH SCH ×3 (00:45→17:10)
[2019-05-21] MEDS: IPRATROPIUM/ALBUTEROL 0.5-3(2.5)MG/3ML NEB HHN SCH ×5 (00:46→17:10)
[2019-05-21] MEDS: MORPHINE SULFATE 2 MG/ML CPJ (NOT FOR IM USE) IV PRN ×6 (01:16→21:55)
[2019-05-21 05:16] LABS: HEMATOCRIT. 21.6 % (42.0-52.0); MEAN CORPUSCULAR HEMOGLOBIN 23.6 pg (28.0-32.0); MEAN CORPUSCULAR VOLUME 75.1 fL (80.0-94.0); MEAN PLATELET VOLUME 10.1 fl (7.4-10.4); PLATELET 131 x1000/uL (130-400); RED BLOOD CELL COUNT 2.88 mill/uL (4.7-6.1); RED CELL DISTRIBUTION WIDTH 21.5 % (11.6-14.6)
[2019-05-21 06:11] LABS: HEMOGLOBIN. 6.8 g/dL (14.0-18.0)
[2019-05-21 06:59] LABS: NUCLEATED RED BLOOD CELLS 1 /100 WBC; PLATELET ESTIMATE NORMAL
[2019-05-21] MEDS: ZINC SULFATE 220 MG ( 50 ) CAPSULE PO SCH (09:45)
[2019-05-21] MEDS: AMIODARONE HCL 200 MG TABLET PO SCH ×2 (09:45→17:49)
[2019-05-21] MEDS: FAMOTIDINE 20MG TABLET PO SCH ×2 (09:45→21:56)
[2019-05-21] MEDS: DOCUSATE SODIUM 100MG CAPSULE PO PRN (09:45)
[2019-05-21] MEDS: ASCORBIC ACID 500 MG TABLET PO SCH ×2 (09:45→21:56)
[2019-05-21] MEDS: GUAIFENESIN/DM 600MG/30MG ER TAB 12HR PO SCH ×2 (09:48→21:56)
[2019-05-21] MEDS: ONDANSETRON HCL 4MG/2ML INJ IV PRN (11:00)
[2019-05-21] MEDS ORDERED: VANCOMYCIN 1500MG in DEXTROSE 5% WATER 250ML IV SCH (21:00)
[2019-05-21 21:59] LABS: HEMATOCRIT 27.1 % (42.0-52.0); HEMOGLOBIN 8.4 g/dL (14.0-18.0)
[2019-05-21] MEDS: ACETAMINOPHEN 325MG TABLET PO PRN (23:53)
[2019-05-22] VITALS (14 sets, daily range): BP systolic 75–108; BP diastolic 41–64
[2019-05-22] MEDS: ACETYLCYSTEINE 100MG/ML 10% VIAL 4ML INH SCH ×2 (00:14→08:29)
[2019-05-22] MEDS: IPRATROPIUM/ALBUTEROL 0.5-3(2.5)MG/3ML NEB HHN SCH ×6 (00:16→20:49)
[2019-05-22] MEDS: PIPERACILLIN/TAZ 3.375G PREMIX 50 ML IV SCH ×5 (01:22→23:31)
[2019-05-22] MEDS: GUAIFENESIN/DM 600MG/30MG ER TAB 12HR PO SCH ×2 (08:56→20:15)
[2019-05-22] MEDS: FAMOTIDINE 20MG TABLET PO SCH ×2 (08:56→20:15)
[2019-05-22] MEDS: AMIODARONE HCL 200 MG TABLET PO SCH ×2 (08:56→17:28)
[2019-05-22] MEDS: ZINC SULFATE 220 MG ( 50 ) CAPSULE PO SCH (08:56)
[2019-05-22] MEDS: ASCORBIC ACID 500 MG TABLET PO SCH ×2 (08:56→20:15)
[2019-05-22] MEDS: LORAZEPAM 0.5MG TABLET PO PRN (10:07)
[2019-05-22] MEDS: MORPHINE SULFATE 2 MG/ML CPJ (NOT FOR IM USE) IV PRN (20:26)
[2019-05-23] VITALS (12 sets, daily range): BP systolic 91–118; BP diastolic 50–77
[2019-05-23] MEDS: MORPHINE SULFATE 2 MG/ML CPJ (NOT FOR IM USE) IV PRN ×3 (00:52→21:34)
[2019-05-23] MEDS: IPRATROPIUM/ALBUTEROL 0.5-3(2.5)MG/3ML NEB HHN SCH ×7 (01:02→23:45)
[2019-05-23] MEDS: LORAZEPAM 0.5MG TABLET PO PRN (01:41)
[2019-05-23] MEDS: PIPERACILLIN/TAZ 3.375G PREMIX 50 ML IV SCH ×3 (05:07→17:07)
[2019-05-23] MEDS: ASCORBIC ACID 500 MG TABLET PO SCH (08:40)
[2019-05-23] MEDS: ZINC SULFATE 220 MG ( 50 ) CAPSULE PO SCH (08:40)
[2019-05-23] MEDS: FAMOTIDINE 20MG TABLET PO SCH (08:40)
[2019-05-23] MEDS: AMIODARONE HCL 200 MG TABLET PO SCH ×3 (08:40→17:07)
[2019-05-23] MEDS: GUAIFENESIN/DM 600MG/30MG ER TAB 12HR PO SCH (08:41)
[2019-05-23] MEDS ORDERED: VANCOMYCIN 1500MG in DEXTROSE 5% WATER 250ML IV SCH (09:00)
[2019-05-23] MEDS: LORAZEPAM 2MG/ML CPJ IV PRN ×2 (12:50→21:38)
[2019-05-24] VITALS (11 sets, daily range): BP systolic 85–138; BP diastolic 47–71
[2019-05-24] MEDS: IPRATROPIUM/ALBUTEROL 0.5-3(2.5)MG/3ML NEB HHN SCH ×5 (04:09→20:22)
[2019-05-24] MEDS: MORPHINE SULFATE 2 MG/ML CPJ (NOT FOR IM USE) IV PRN ×4 (08:05→21:23)
[2019-05-24] MEDS: AMIODARONE HCL 200 MG TABLET PO SCH ×2 (09:00→16:43)
[2019-05-24] MEDS: PIPERACILLIN/TAZ 2.25G PREMIX 50 ML IV SCH ×2 (13:22→17:34)
[2019-05-24] MEDS: LORAZEPAM 2MG/ML CPJ IV PRN (22:56)
[2019-05-25] VITALS (19 sets, daily range): BP systolic 87–121; BP diastolic 45–71
[2019-05-25] MEDS: PIPERACILLIN/TAZ 2.25G PREMIX 50 ML IV SCH ×4 (00:14→18:31)
[2019-05-25] MEDS: IPRATROPIUM/ALBUTEROL 0.5-3(2.5)MG/3ML NEB HHN SCH ×6 (00:52→21:32)
[2019-05-25] MEDS: MORPHINE SULFATE 2 MG/ML CPJ (NOT FOR IM USE) IV PRN ×2 (03:13→19:40)
[2019-05-25] MEDS: LORAZEPAM 2MG/ML CPJ IV PRN ×3 (04:14→20:46)
[2019-05-25 07:58] LABS: BASOPHILS % 2.5 % (0.0-2.0); EOSINOPHILS % 0.6 % (0.0-5.0); HEMATOCRIT. 24.7 % (42.0-52.0); HEMOGLOBIN. 7.3 g/dL (14.0-18.0); LYMPHOCYTES % 9.6 % (20.0-50.0); MEAN CORPUSCULAR HEMOGLOBIN 23.6 pg (28.0-32.0); MEAN CORPUSCULAR VOLUME 79.7 fL (80.0-94.0); MEAN PLATELET VOLUME 9.8 fl (7.4-10.4); MONOCYTES % 10.8 % (2.0-8.0); NEUTROPHILS % 76.5 % (40.0-76.0); PLATELET 150 x1000/uL (130-400); RED BLOOD CELL COUNT 3.11 mill/uL (4.7-6.1); RED CELL DISTRIBUTION WIDTH 22.2 % (11.6-14.6)
[2019-05-25] MEDS: AMIODARONE HCL 200 MG TABLET PO SCH ×2 (09:42→18:31)
[2019-05-25 10:34] LABS: BG BASE EXCESS -5.1 mmol/L (-2.0-2.0); BG BILEVEL POS AIRWAY PRESSURE 15/5; BG CARBOXYHEMOGLOBIN 0.4 % (0.5-1.5); BG DEOXYHEMOGLOBIN 4.9 % (0.0-5.0); BG FRACTION INSPIRED OXYGEN 50; BG HCO3 ACT 21.4 mmol/L (22.0-26.0); BG METHEMOGLOBIN 0.4 % (0.0-1.5); BG OXYGEN SATURATION 95.1 % (92.0-98.5); BG OXYHEMOGLOBIN 94.3 % (94.0-97.0); BG PCO2 46.7 mmHg (35.0-45.0); BG PH 7.279 (7.350-7.450); BG SAMPLE SITE RIGHT RADIAL; BG TOTAL HEMOGLOBIN 8.3 g/dL (12.0-18.0); BG VENT MODE MASK - BIPAP; BG VENT RATE 16 set
[2019-05-26] VITALS (9 sets, daily range): BP systolic 68–111; BP diastolic 43–54
[2019-05-26] MEDS: IPRATROPIUM/ALBUTEROL 0.5-3(2.5)MG/3ML NEB HHN SCH ×5 (00:06→16:12)
[2019-05-26] MEDS: PIPERACILLIN/TAZ 2.25G PREMIX 50 ML IV SCH ×4 (00:26→18:12)
[2019-05-26] MEDS: LORAZEPAM 2MG/ML CPJ IV PRN ×3 (00:51→10:40)
[2019-05-26] MEDS: MORPHINE SULFATE 2 MG/ML CPJ (NOT FOR IM USE) IV PRN ×2 (03:09→15:06)
[2019-05-26] MEDS: AMIODARONE HCL 200 MG TABLET PO SCH ×2 (09:13→16:08)
[2019-05-26] MEDS ORDERED: LORAZEPAM 2MG/ML CPJ IV PRN (20:00)
== END 2019-05-26 18:35 | disposition expired | DRG 720 ==
LOC: ER 13:45 → EDBEDREQ 14:48 → EDBEDREQSVC 14:48 → MICUNO 15:25 → EDBEDREQTM 15:38 → EDBEDREQ 15:38 → ENRESERV 18:21 → 5EST 05-21 17:25
PROVIDERS: ADMIT Internal Medicine; ATTEND Internal Medicine
PROC: 02HV33Z Insertion of Infusion Device into Superior Vena Cava, Percutaneous Approach (ICD-10-PCS; principal; 2019-05-16)
PROC: B548ZZA Ultrasonography of Superior Vena Cava, Guidance (ICD-10-PCS; 2019-05-16)
PROC: 5A09357 Assistance with Respiratory Ventilation, Less than 24 Consecutive Hours, Continuous Positive Airway Pressure (ICD-10-PCS; 2019-05-16)
PROC: 30233N1 Transfusion of Nonautologous Red Blood Cells into Peripheral Vein, Percutaneous Approach (ICD-10-PCS; 2019-05-17)
PROC: 5A09357 Assistance with Respiratory Ventilation, Less than 24 Consecutive Hours, Continuous Positive Airway Pressure (ICD-10-PCS; 2019-05-17)
PROC: 5A09357 Assistance with Respiratory Ventilation, Less than 24 Consecutive Hours, Continuous Positive Airway Pressure (ICD-10-PCS; 2019-05-18)
PROC: 5A09357 Assistance with Respiratory Ventilation, Less than 24 Consecutive Hours, Continuous Positive Airway Pressure (ICD-10-PCS; 2019-05-19)
PROC: 5A09357 Assistance with Respiratory Ventilation, Less than 24 Consecutive Hours, Continuous Positive Airway Pressure (ICD-10-PCS; 2019-05-20)
PROC: 5A09357 Assistance with Respiratory Ventilation, Less than 24 Consecutive Hours, Continuous Positive Airway Pressure (ICD-10-PCS; 2019-05-21)
PROC: 5A09357 Assistance with Respiratory Ventilation, Less than 24 Consecutive Hours, Continuous Positive Airway Pressure (ICD-10-PCS; 2019-05-22)
PROC: 5A09357 Assistance with Respiratory Ventilation, Less than 24 Consecutive Hours, Continuous Positive Airway Pressure (ICD-10-PCS; 2019-05-23)
PROC: 5A09357 Assistance with Respiratory Ventilation, Less than 24 Consecutive Hours, Continuous Positive Airway Pressure (ICD-10-PCS; 2019-05-24)
PROC: 5A09357 Assistance with Respiratory Ventilation, Less than 24 Consecutive Hours, Continuous Positive Airway Pressure (ICD-10-PCS; 2019-05-25)
PROC: 5A09357 Assistance with Respiratory Ventilation, Less than 24 Consecutive Hours, Continuous Positive Airway Pressure (ICD-10-PCS; 2019-05-26)
DX: A41.9 Sepsis, unspecified organism (principal); J96.01 Acute respiratory failure with hypoxia; E43 Unspecified severe protein-calorie malnutrition; I13.2 Hypertensive heart and chronic kidney disease with heart failure and with stage 5 chronic kidney disease, or end stage renal disease; J18.9 Pneumonia, unspecified organism; E87.2 Acidosis; D62 Acute posthemorrhagic anemia; E11.22 Type 2 diabetes mellitus with diabetic chronic kidney disease; L89.150 Pressure ulcer of sacral region, unstageable; N17.9 Acute kidney failure, unspecified; C78.00 Secondary malignant neoplasm of unspecified lung; C34.90 Malignant neoplasm of unspecified part of unspecified bronchus or lung; D63.8 Anemia in other chronic diseases classified elsewhere; K21.9 Gastro-esophageal reflux disease without esophagitis; D68.59 Other primary thrombophilia; D89.9 Disorder involving the immune mechanism, unspecified; E05.90 Thyrotoxicosis, unspecified without thyrotoxic crisis or storm; F12.90 Cannabis use, unspecified, uncomplicated; I48.91 Unspecified atrial fibrillation; I50.33 Acute on chronic diastolic (congestive) heart failure; J44.0 Chronic obstructive pulmonary disease with (acute) lower respiratory infection; K27.9 Peptic ulcer, site unspecified, unspecified as acute or chronic, without hemorrhage or perforation; R04.2 Hemoptysis; I31.3 Pericardial effusion (noninflammatory); C64.9 Malignant neoplasm of unspecified kidney, except renal pelvis; C79.31 Secondary malignant neoplasm of brain; R29.6 Repeated falls; K29.70 Gastritis, unspecified, without bleeding; Y95 Nosocomial condition; Z66 Do not resuscitate; Z68.36 Body mass index [BMI] 36.0-36.9, adult; Z88.8 Allergy status to other drugs, medicaments and biological substances; Z91.041 Radiographic dye allergy status; Z79.899 Other long term (current) drug therapy; Z92.21 Personal history of antineoplastic chemotherapy
CPT/HCPCS: 36415; 36600; 71045; 76937; 80048; 80202; 80320; 82375; 82550; 82553; 82607; 82746; 82805; 82962; 83540; 83550; 83605; 83735; 83880; 84134; 84145; 84439; 84443; 84481; 84484; 85014; 85018; 85049; 85384; 86850; 86900; 86920; 93005; 93306; 93308; 93970; 94640; 94660; 96374; 99285; C1725; J1160; J1940; J1956; J2060; J2270; J2405; J2543; J3370; J3490; J7040; J7050; J7060; J7608; J7620; P9016; G0480